=== PATIENT | male | born 1995 | race Caucasian/White ===

== ENCOUNTER 2022-04-24 05:52 | Emergency (ER) | payer OTHER ==
[~2022-04-24] VITALS: Ht 188 cm; Wt 79.1 kg
[2022-04-24] MEDS ORDERED: ZYRTEC10 M3 PO (06:08)
[2022-04-24] MEDS ORDERED: WELLBUTRIN XL300 M1 PO (06:08)
[2022-04-24 07:35] VITALS: BP 118/76
== END 2022-04-24 07:35 | disposition home or self-care (01) ==
LOC: ED 05:52
DX: M79.672 Pain in left foot (principal)

== ENCOUNTER 2022-05-09 08:59 | Emergency (ER) | payer OTHER ==
[~2022-05-09 08:59] MED LIST: WELLBUTRIN XL300 M1 PO; ZYRTEC10 M3 PO
[2022-05-09 09:04] VITALS: BP 142/89
== END 2022-05-09 09:33 | disposition home or self-care (01) ==
LOC: ED 08:59
DX: S60.031A Contusion of right middle finger without damage to nail, initial encounter (principal); Z28.310 Unvaccinated for COVID-19; W20.8XXA Other cause of strike by thrown, projected or falling object, initial encounter; Y92.59 Other trade areas as the place of occurrence of the external cause; Y99.0 Civilian activity done for income or pay